=== PATIENT | female | born 1980 | race Caucasian/White ===

== ENCOUNTER 2022-07-04 23:06 | Observation (INO) | payer SELFPAY ==
[2022-07-05 00:44] VITALS: BMI 28.4
[2022-07-05] MEDS ORDERED: Ondansetron PF 4 MG/2 ML Vial IVP PRN (01:56)
[2022-07-05] MEDS ORDERED: Acetaminophen 325 MG TAB PO PRN (01:56)
[2022-07-05] MEDS ORDERED: Nitroglycerin 2% Ointment 1 INCH/1 GM Packet TOP SCH ×2 (02:00→12:00)
[2022-07-05 02:32] LABS: Hemoglobin A1c 6.5 % (4.0-6.0)
[2022-07-05 02:45] LABS: Cardiac Risk 3.9 (Less than 4.5)
[2022-07-05 02:49] LABS: Troponin I Less than 0.010 ng/mL (< 0.028)
[2022-07-05 05:10] LABS: Hemoglobin 12.7 g/dL (12.0-16.0); Mean Corpuscular HGB CONC 34.9 g/dL (32.0-36.0); Mean Corpuscular Hemoglobin 30.1 pg (27.0-31.0); Mean Corpuscular Volume 86.3 fl (78.0-98.0); Mean Platelet Volume 8.1 fL (7.4-10.4); Platelet Count 338 10x3/uL (130-400); RBC Distribution Width 13.2 % (11.5-14.5); White Blood Cell (WBC) Count 7.5 10x3/uL (4.8-10.8)
[2022-07-05 05:28] LABS: Anion Gap 16 mmol/L (10-20); BUN (Urea Nitrogen) 17 mg/dL (7.0-18.7); Calc. Creatinine Clearance 127 mL/min (70-130); Calcium 8.8 mg/dL (7.8-10.44); Carbon Dioxide 22 mmol/L (22-29); Chloride 104 mmol/L (98-107); Estimated GFR 110; Glucose 126 mg/dL (70-105); Potassium 3.8 mmol/L (3.5-5.1); Sodium 138 mmol/L (136-145)
[2022-07-05 05:32] LABS: Band 2 % (5-11); Eosinophils 1 % (0-10); Lymphocytes 51 % (21-51); MDiff Complete? YES; Monocytes 6 % (0-10); Neutrophil 40 % (42-75)
[2022-07-05] MEDS ORDERED: Aspirin 81 mg Enteric Coated Tablet PO SCH (09:00)
[2022-07-05] MEDS ORDERED: Ketorolac Tromethamine 30 MG/ML VIAL IVP SCH (10:30)
[2022-07-05] MEDS ORDERED: ADENOSINE 60 MG/20 ML VIAL ONE (12:26)
[2022-07-05 12:47] VITALS: BP 114/68; TEMP 98.8
[2022-07-05] MEDS ORDERED: Atorvastatin Calcium 40 MG TAB PO SCH (21:00)
== END 2022-07-05 13:12 | disposition home or self-care (01) ==
LOC: 2SW 07-05 00:33
PROVIDERS: ADMIT Internal Medicine; ATTEND Nurse Practitioner Family
DX: R07.2 Precordial pain (principal); I73.9 Peripheral vascular disease, unspecified; F15.10 Other stimulant abuse, uncomplicated; F17.210 Nicotine dependence, cigarettes, uncomplicated; Z20.822 Contact with and (suspected) exposure to COVID-19
CPT/HCPCS: 36415; 78452; 80048; 80061; 83036; 84484; 85025; 93005; 93010; 93017; 94760; 96372; 96375; A9500; G0378; J0153; J1650; J1885